=== PATIENT | female | born 1940 | race Caucasian/White ===

== ENCOUNTER 2016-09-25 09:24 | Emergency (ER) | payer MEDICARE, BC ==
[2016-09-25 09:41] VITALS: TEMP 98.7; BMI 34.3
--- NOTE | 2016-09-25 10:06 | EDPRACDOC ---
- General Information Chief Complaint: Chest Pain Stated Complaint: ABNORMAL EKG Time Seen by Provider: 09/25/16 09:52 Mode of Arrival: Car Home Medications: Home Medications Cholecalciferol (Vitamin D3) [Vitamin D3] 1,000 unit PO DAILY 09/25/16 Cyanocobalamin (Vitamin B-12) [Vitamin B-12 (cyanocobalamin)] 1,000 mcg SL DAILY 09/25/16 Enalapril Maleate 20 mg PO DAILY 09/25/16 Fluoxetine HCl [Prozac] 20 mg PO DAILY 09/25/16 Glimepiride 2 mg PO DAILY 09/25/16 Hydrochlorothiazide 12.5 mg PO DAILY 09/25/16 Hydrocodone Bit/Acetaminophen [Viper 10-325 Tablet] 1 tab PO TID PRN 09/25/16 Lorazepam [Ativan] 1 mg PO TID 09/25/16 MetFORMIN (Immediate Release) [GLUCOPHAGE Immed Release] 1,000 mg PO BID Metoprolol Succinate (XL) [Toprol Xl] 25 mg PO DAILY #30 tab 09/25/16 Vit A/Vit C/Vit E/Zinc/Copper [Preservision Areds Softgel] 1 cap PO DAILY Allergies/Adverse Reactions: Allergies Allergy/AdvReac Type Severity Reaction Status Date / Time Penicillins Allergy Rash-Genera Verified 09/25/16 10:23 lized - History of Present 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 FOUND TO HAVE TACHYCARDIA. FEELS NAUSEA , BUT HAS HAD FREQUENTLY, PT THOUGHT DUE TO HER MEDICATIONS. DENIES CHEST PAIN, SOB. [place] COPIOUS WALKING. 9.5 HOUR FLIGHT. DENIES CALF PAIN, SWELLING. ED Past Medical History - History Reviewed Yes Nurses notes reviewed and agree except as marked If yes, which country: [facility] Travel dates: AUG 22 [place]URN TO [place] - Patient Medical History Cardiac History: Reports: Hypertension Systemic History: Denies: Cancer EDM Review of Systems - Review of Systems ROS Negative Except as Marked: Yes All systems reviewed and were negative except as marked - Physical Exam Constitutional: Alert (Awake), No apparent distress Oriented to: Time, Person, Place Last recorded Vital Signs: Last Vital Signs Temp 98.7 F 09/25/16 09:36 Pulse 117 09/25/16 09:58 Resp 20 09/25/16 09:58 BP 216/98 H 09/25/16 09:58 Pulse Ox 93 09/25/16 09:58 Oxygen Pulse Oxygen Saturation 93 O2 Device Room Air Oxygen Flow Rate Fraction of Inspired Oxygen ( FIO2) - HEENT Head: Normal ( normocephalic) Eye Exam: Normal (PERRL, EOMI, Sclera white) Oropharynx: Normal (Pharynx:Moist without exudate,Gums-no swelling) Nose: No Symptoms Reported (septum midline) Neck: Normal (FROM, trachea at midline) - Respiratory/Cardiovascular Respiratory: Normal - CTA (BBS clear to auscultation without adventitious sounds ) Cardiovascular: Tachycardia - GI Auscultation: Normal (NABS) Palpation: Normal (Soft,No rebound or guarding, non distended) Tenderness: Non tender Mireles's Sign: Negative - Musculoskeletal Back: Normal (Non-Tender) Extremities: Normal (Normal tone, Pulses 2+ No cyanosis or edema, FROM) - Integumentary Skin: Normal, Warm, Dry Lymphatics: Normal (no adenopathy) - Neurologic Memory Impaired: Normal Motor Function: Normal (Normal tone, Pulses 2+ No cyanosis or edema, FROM) Cranial Nerve: Normal (CN II-X11 intact sensation, strength 5/5) Cerebellar: Normal Mood Description: Normal Perception: Normal - Results 09/25/16 10:28 09/25/16 10:28 - EKG EKG #1 Initial EKG Time: 09:34 -: Yes EKG interpreted by me Rate: bpm: [address] [place]: Normal Rhythm: ST Block: None Hypertrophy: LVH ST: Normal Comments: ABNORMAL EKG Decision Time to Discharge: 13:16 - Departure Yes I personally saw and evaluated the patient. Disposition: Home Condition: Stable Final Diagnosis: Tachycardia Hypertension Qualifiers: Hypertension type: essential hypertension Qualified Code(s): I10 - Essential ( primary) hypertension Instructions: Tachycardia-Nonspecific, Chronic Hypertension (ED) Education/Counseling Given To: Patient Education/Counseling Given Regarding: Diagnosis Referrals: Chika Adams MD [Primary Care Provider] - One Week Prescriptions: Metoprolol Succinate (XL) [Toprol Xl] 25 mg PO DAILY #30 tab
[2016-09-25 10:38] LABS: AUTOMATED BASOPHIL 1.1 % (0-2); AUTOMATED EOSINOPHIL 1.1 % (0-5); AUTOMATED LYMPH 16.4 % (17-44); AUTOMATED MONOCYTE 9.8 % (3-10); AUTOMATED NEUTROPHIL 71.6 % (45-76); MPV 7.8 fL (7.4-10.4)
--- NOTE | 2016-09-25 10:42 | DIRPT ---
CLINICAL DATA: Tachycardia today. Initial encounter. EXAM: PORTABLE CHEST 1 VIEW COMPARISON: CT chest 01/10/2015. Single view of the chest 12/27/2014. FINDINGS: Surgical clips are noted in the right breast and axilla. Calcified mediastinal lymph nodes are seen. The lungs are clear. Heart size is normal. No pneumothorax or pleural effusion. IMPRESSION: No acute disease. Electronically Signed By: Danny Chanel M.D. On: 09/25/2016 10:40
[2016-09-25 10:49] LABS: PARTIAL THROMB. TIME 26.3 SEC (22-35)
[2016-09-25 10:55] LABS: BLOOD UREA NITROGEN 10 MG/DL (7-17); CALCIUM 9.4 MG/DL (8.4-10.2); CALCULATED OSMOLALITY 268 MOs/Kg (270-290); CHLORIDE 100 mEq/L (98-107); GLUCOSE 193 MG/DL (70-99); LDL (calc.) 103.8 MG/DL (<100); SODIUM LEVEL 137 mEq/L (137-146); TOTAL PROTEIN 7.2 G/DL (6.3-8.2); VLDL (calc.) 16.2 MG/DL (5-40)
[2016-09-25 11:12] LABS: FREE T3 3.67 pg/mL (2.77-5.27); FREE T4 1.71 ng/dL (0.78-2.19)
[2016-09-25 11:25] LABS: hTSH 1.17 uIU/mL (0.5-4.67)
[2016-09-25] MEDS ORDERED: Pharmacy Review for Metformin - IV Contrast Given SCH (12:00)
--- NOTE | 2016-09-25 12:49 | DIRPT ---
CLINICAL DATA: Tachycardia. Recent [place] flight ([place]) EXAM: CT ANGIOGRAPHY CHEST WITH CONTRAST TECHNIQUE: Multidetector CT imaging of the chest was performed using the standard protocol during bolus administration of intravenous contrast. Multiplanar CT image reconstructions and MIPs were obtained to evaluate the vascular anatomy. CONTRAST: 100 cc Isovue 370 intravenous COMPARISON: 01/10/2015 FINDINGS: THORACIC INLET/BODY WALL: Suboptimal study due to left arm injection and tight left brachiocephalic vein stenosis with extensive collateral formation. Status post right lumpectomy with grossly stable appearance. Right axillary lymphadenectomy without adenopathy. MEDIASTINUM: Normal heart size. No pericardial effusion. Atherosclerosis, including the coronary arteries, with particularly heavily calcification along the proximal LAD. Bolus dispersion and contrast timing is affected by the venous stenosis. Pulmonary artery opacification is suboptimal but in a diagnostic range to the segmental level. Calcified granuloma left mediastinum. LUNG WINDOWS: Mosaic attenuation lungs in expiratory phase, likely small airways disease given multiple segmental bronchi are collapsed and thick walled. Subpleural reticulation in the right upper lobe, attributed to radiation fibrosis given neighboring lumpectomy change. UPPER ABDOMEN: Cholelithiasis. Stable cyst in the midline liver, sub cm OSSEOUS: Remote T9 superior endplate fracture. No acute osseous finding Review of the MIP images confirms the above findings. IMPRESSION: 1. No evidence of pulmonary embolism or other acute disease. Pulmonary artery opacification and peripheral visualization hindered by high-grade left brachiocephalic vein stenosis. 2. Chronic/incidental findings are described above. Electronically Signed By: Von Rod M.D. On: 09/25/2016 12:46
[2016-09-25] MEDS ORDERED: METOPROLOL (TOPROL-XL) 25 MG TAB PO ONE (13:17)
[2016-09-25 13:45] VITALS: BP 180/74; PULSE 98
== END 2016-09-25 13:40 | disposition home or self-care (01) ==
LOC: ED 09:24
DX: R00.0 Tachycardia, unspecified (principal); I10 Essential (primary) hypertension
CPT/HCPCS: 36415; 71010; 71275; 80053; 80061; 83036; 83880; 84439; 84443; 84481; 84484; 85025; 85379; 85610; 85730; 93005; 99284; A9270; A9698; J3490